=== PATIENT | male | born 1990 | race African-American/Black ===

== ENCOUNTER 2020-10-14 08:29 | Emergency (ER) | payer MEDICAID ==
[~2020-10-14] VITALS: Ht 170.2 cm; Wt 120.2 kg
[2020-10-14 08:44] VITALS: BP 148/108
--- NOTE | 2020-10-14 08:48 | NUR ---
Pt ambulated to ER bed 5 with a steady gait.
--- NOTE | 2020-10-14 08:53 | NUR ---
30 Y/O MALE C/O SORE THROAT 4 DAYS WITH PAIN /10 DESCRIBES SORE, DENIES COUGH. DENIES ANYONE IN HOUSEHOLD WITH SAME SYMPTOMS. DENIES N/V, DENIES FEVER/CHILLS. DENIES PMH NKA
--- NOTE | 2020-10-14 09:12 | NUR ---
Dr. Upton at pt bedside for further evaluation.
[2020-10-14] MEDS ORDERED: AMOX-1000 PO (09:19)
[2020-10-14] MEDS ORDERED: LIDO15SO PO (09:19)
[2020-10-14] MEDS ORDERED: DEXAMETHASONE 10 MG/ML VIAL IM ONE (09:20)
--- NOTE | 2020-10-14 09:27 | NUR ---
Gave decadron 16mg IM to left deltoid per MD order prior to d/c. Pt tolerated well.
--- NOTE | 2020-10-14 09:27 | NUR ---
Jose F ely in EDM - 10/14/20 at 1024 by [id number] Gave decadron 16mg PO per MD order prior to d/c. Pt tolerated well.
[2020-10-14] MEDS ORDERED: DEXAMETHASONE 10 MG/ML VIAL ONE (09:29)
[2020-10-14 09:37] VITALS: BP 148/108
--- NOTE | 2020-10-14 09:39 | NUR ---
Patient discharged with v/s stable. Written and verbal after care instructions given PHARYNGITIS and explained. Patient alert, oriented and verbalized understanding of instructions. Ambulatory with steady gait. All questions addressed prior to discharge. ID band removed. Patient advised to follow up with PMD. Rx of AUGMENTIN 875MG PO BID FOR 7DAYS, AND LIDOCAINE 5Ml TID FOR SORE THROAT FOR 6DAYS given. Patient educated on indication of medication including possible reaction and side effects. Opportunity to ask questions provided and answered.
== END 2020-10-14 09:35 | disposition home or self-care (01) ==
LOC: MED 08:29
DX: J02.9 Acute pharyngitis, unspecified (principal); F17.200 Nicotine dependence, unspecified, uncomplicated
CPT/HCPCS: 96372; 99283; J1100